=== PATIENT | male | born 1970 | race Caucasian/White ===

== ENCOUNTER → 2020-06-14 | Emergency (ER) | payer OTHER ==
[~2020-06-14] VITALS: Ht 182.9 cm; Wt 77.1 kg
[~2020-06-14] MED LIST: ANUSOL-HC25 MG PR; ANUSOL-HC30 GM PR; BACLOFEN10 MG PO; CLEOCIN HCL300 MG PO; CYMBALTA30 MG PO; DETROL LA2 MG PO; LYRICA300 MG PO; MELOXICAM7.5 MG PO; METHADONE HCL5 MG PO; MIRALAX17 GM PO; NEURONTIN300 MG PO; NITRO-BID1 INCH TD; OMEPRAZOLE20 MG PO; PERCOCET 5-3251 EACH PO
--- NOTE | 2020-06-16 13:49 | EKG ---
[facility] [address] [facility] [place] [address] Signed Normal sinus rhythm Possible Left atrial enlargement RSR' or QR pattern in V1 suggests right ventricular conduction delay Borderline ECG No previous ECGs available Confirmed by ELMA PENA DO ([id number]) on 06/16/2020 1:49:09 PM Electronically Signed By: ELMA PENA DO 06/16/20 1349 PATIENT NAME: VASYL ENAMORADO Electrocardiogram DATE OF : 72 PHYSICIAN: ELMA PENA DO REPORT #: [id number] REPORT IS CONFIDENTIAL AND NOT TO BE RELEASED WITHOUT AUTHORIZATION
== END | disposition home or self-care (01) ==
LOC: ED 05:26
DX: R03.1 Nonspecific low blood-pressure reading (principal)
CPT/HCPCS: 93005; 93010; 99283-25

== ENCOUNTER 2022-10-20 15:38 | Inpatient (IN) | payer OTHER ==
[~2022-10-20] VITALS: Ht 182.9 cm; Wt 79.0 kg
[~2022-10-20 15:38] MED LIST changes: +CYMBALTA60 MG; +OXYCODONE HCL5 MG PO; +VALIUM5 MG PO
[2022-10-20] MEDS ORDERED: PREGABALIN300 MG PO (15:49)
[2022-10-20] MEDS ORDERED: DETROL LA2 MG PO (15:49)
[2022-10-20] MEDS ORDERED: KEPPRA1000 MG PO (15:50)
[2022-10-20 19:24] LABS: BASOPHILS 0.8 % (0-2); EOSINOPHILS 0.7 % (0-6); HEMATOCRIT 40.7 % (35.0-50.0); HEMOGLOBIN 13.5 g/dL (12.0-18.0); LYMPHOCYTES 22.3 % (24-44); MCH 28.5 (27-36); MCHC 33.1 g/dl (30-36); MCV 86.2 fl (81-99); MONOCYTES 7.6 % (0-12); NEUTROPHILS 68.6 % (39-80); PLATELET COUNT 384 K/uL (140-440); RBC 4.72 M/ul (4.3-5.7); RDW 15.6 (10.5-15.0)
[2022-10-20 19:45] LABS: BILIRUBIN, URINE NEGATIVE (negative); BLOOD/HGB, URINE MODERATE (Negative); KETONE, URINE SMALL (Negative); LEUK ESTERASE, URINE MODERATE (negative); NITRITE, URINE POSITIVE (negative)
[2022-10-20 19:45] LABS: ALBUMIN 3.5 g/dL (3.4-5.0); ALBUMIN/GLOBULIN RATIO 0.9 (1.1-2.4); ANION GAP 14.8 (7-21); BILIRUBIN, TOTAL 0.5 ng/dL (0.2-1.0); BUN/CREATININE RATIO 27.9 (6.0-28.6); CALCIUM 8.9 mg/dL (8.5-10.1); CREATININE, SERUM 0.43 mg/dL (0.70-1.30); POTASSIUM 3.8 mmol/L (3.5-5.1); PROTEIN, TOTAL 7.4 g/dL (6.4-8.2)
[2022-10-20 19:51] LABS: BACTERIA, URINE 1+ /hpf (negative); CASTS, URINE NONE SEEN \\lpf; COLLECTION TYPE, URINE CLEAN CATCH; CRYSTALS, URINE NONE SEEN (0-1+); EPITHELIAL CELLS, URINE NONE SEEN /lpf (0-1+); REFLEX CULTURE, URINE Yes (No); WHITE BLOOD CELLS, URINE 21-40 /HPF (0-5)
[2022-10-20 21:38] VITALS: BP 147/97
[2022-10-20 21:43] LABS: INFLUENZA B NAA NEGATIVE (NEGATIVE); RESPIRATORY SYNCYTIAL VIR NAA NEGATIVE (NEGATIVE)
[2022-10-21 01:12] VITALS: BP 106/73
[2022-10-21 05:24] LABS: BASOPHILS 0.7 % (0-2); HEMATOCRIT 38.5 % (35.0-50.0); HEMOGLOBIN 12.6 g/dL (12.0-18.0); LYMPHOCYTES 18.4 % (24-44); MCH 28.3 (27-36); MCHC 32.7 g/dl (30-36); MCV 86.6 fl (81-99); MONOCYTES 8.9 % (0-12); PLATELET COUNT 375 K/uL (140-440); RBC 4.45 M/ul (4.3-5.7); RDW 15.7 (10.5-15.0)
[2022-10-21 05:43] LABS: ANION GAP 13.2 (7-21); BUN/CREATININE RATIO 32.55 (6.0-28.6); CALCIUM 8.3 mg/dL (8.5-10.1); CREATININE, SERUM 0.43 mg/dL (0.70-1.30); MAGNESIUM 1.9 mg/dL (1.8-2.4); PHOSPHORUS, INORGANIC 3.5 mg/dL (2.5-4.9); POTASSIUM 4.2 mmol/L (3.5-5.1)
[2022-10-21 05:55] VITALS: BP 127/91
[2022-10-21 09:04] VITALS: BP 125/88
[2022-10-21] MEDS ORDERED: BACLOFEN20 MG PO (10:26)
[2022-10-21 12:57] VITALS: BP 120/85
[2022-10-21 18:45] VITALS: BP 95/59
[2022-10-21 20:16] VITALS: BP 97/58
[2022-10-22 05:00] VITALS: BP 116/76
[2022-10-22 05:18] LABS: BASOPHILS 0.9 % (0-2); EOSINOPHILS 1.1 % (0-6); HEMATOCRIT 37.6 % (35.0-50.0); HEMOGLOBIN 12.3 g/dL (12.0-18.0); LYMPHOCYTES 23.6 % (24-44); MCH 28.5 (27-36); MCHC 32.8 g/dl (30-36); MCV 86.9 fl (81-99); MONOCYTES 8.7 % (0-12); NEUTROPHILS 65.7 % (39-80); PLATELET COUNT 349 K/uL (140-440); RBC 4.33 M/ul (4.3-5.7); RDW 15.9 (10.5-15.0)
[2022-10-22 05:27] LABS: ANION GAP 12.3 (7-21); BUN/CREATININE RATIO 22.85 (6.0-28.6); CALCIUM 8.1 mg/dL (8.5-10.1); CREATININE, SERUM 0.35 mg/dL (0.70-1.30); POTASSIUM 3.3 mmol/L (3.5-5.1)
[2022-10-22 10:06] VITALS: BP 99/66
[2022-10-22 13:20] VITALS: BP 96/68
[2022-10-22 18:48] VITALS: BP 142/96
[2022-10-22 20:20] VITALS: BP 154/101
[2022-10-22 22:45] VITALS: BP 117/73
[2022-10-23 04:37] VITALS: BP 116/77
[2022-10-23 05:26] LABS: BASOPHILS 1.2 % (0-2); EOSINOPHILS 1.7 % (0-6); HEMATOCRIT 37.9 % (35.0-50.0); HEMOGLOBIN 12.5 g/dL (12.0-18.0); LYMPHOCYTES 24.3 % (24-44); MCH 28.6 (27-36); MCV 86.6 fl (81-99); MONOCYTES 8.6 % (0-12); NEUTROPHILS 64.2 % (39-80); PLATELET COUNT 357 K/uL (140-440); RBC 4.38 M/ul (4.3-5.7); RDW 15.7 (10.5-15.0)
[2022-10-23 05:36] LABS: ANION GAP 13.9 (7-21); BUN/CREATININE RATIO 19.51 (6.0-28.6); CALCIUM 8.3 mg/dL (8.5-10.1); CREATININE, SERUM 0.41 mg/dL (0.70-1.30); POTASSIUM 3.9 mmol/L (3.5-5.1)
[2022-10-23 09:48] VITALS: BP 95/53
[2022-10-23 13:34] VITALS: BP 119/76
[2022-10-23 18:38] VITALS: BP 138/90
[2022-10-23 20:07] VITALS: BP 135/93
[2022-10-24 05:04] VITALS: BP 127/91
[2022-10-24 10:12] VITALS: BP 143/82
[2022-10-24 15:02] VITALS: BP 118/75
[2022-10-24] MEDS ORDERED: DOXYCYCLINE HY100 MG PO (17:38)
[2022-10-24] MEDS ORDERED: CEFPODOXIME PR200 MG PO (17:38)
[2022-10-24] MEDS ORDERED: NITRO-BID1 INCH TOP (17:38)
[2022-10-24] MEDS ORDERED: KEPPRA1000 MG PO (17:56)
[2022-10-24] MEDS ORDERED: PREGABALIN300 MG PO (17:56)
[2022-10-24] MEDS ORDERED: BACLOFEN20 MG PO (17:56)
[2022-10-24] MEDS ORDERED: DETROL LA2 MG PO (17:56)
[2022-10-24 18:35] VITALS: BP 106/72
[2022-10-24 20:56] VITALS: BP 111/64
[2022-10-25 05:33] VITALS: BP 121/78
[2022-10-25 05:33] LABS: BASOPHILS 1.1 % (0-2); EOSINOPHILS 1.3 % (0-6); HEMATOCRIT 37.7 % (35.0-50.0); HEMOGLOBIN 12.5 g/dL (12.0-18.0); LYMPHOCYTES 21.8 % (24-44); MCH 28.5 (27-36); MCHC 33.3 g/dl (30-36); MCV 85.5 fl (81-99); MONOCYTES 8.2 % (0-12); NEUTROPHILS 67.6 % (39-80); PLATELET COUNT 356 K/uL (140-440); RBC 4.41 M/ul (4.3-5.7); RDW 15.6 (10.5-15.0)
[2022-10-25 05:44] LABS: ANION GAP 12.5 (7-21); BUN/CREATININE RATIO 33.33 (6.0-28.6); CALCIUM 8.5 mg/dL (8.5-10.1); CREATININE, SERUM 0.39 mg/dL (0.70-1.30); POTASSIUM 4.5 mmol/L (3.5-5.1)
[2022-10-25 09:36] VITALS: BP 126/72
[2022-10-25 14:14] VITALS: BP 107/85
[2022-10-25 18:00] VITALS: BP 127/84
[2022-10-25 20:43] VITALS: BP 106/69
[2022-10-26 05:32] VITALS: BP 122/76
[2022-10-26 10:06] VITALS: BP 124/85
== END 2022-10-26 15:30 | DRG 593 ==
LOC: ED 15:38 → MS 20:24
PROVIDERS: Emergency Medicine; ADMIT Family Medicine; ATTEND Internal Medicine
DX: L89.212 Pressure ulcer of right hip, stage 2 (principal); N39.0 Urinary tract infection, site not specified; L89.312 Pressure ulcer of right buttock, stage 2; G90.4 Autonomic dysreflexia; Z20.822 Contact with and (suspected) exposure to COVID-19; E87.6 Hypokalemia; G83.9 Paralytic syndrome, unspecified; Z98.890 Other specified postprocedural states; Z79.899 Other long term (current) drug therapy; Z86.73 Personal history of transient ischemic attack (TIA), and cerebral infarction without residual deficits
CPT/HCPCS: 36415; 80048; 80053; 81001; 83735; 84100; 85025; 87088; 87502; 96374; 97110; 97163; 97165; 97530; 99284-25; A9270; J0696; J1650; J2405; J7030; U0002

== ENCOUNTER 2023-08-10 10:52 | Emergency (ER) | payer OTHER ==
[~2023-08-10] VITALS: Ht 182.9 cm; Wt 79.5 kg
[~2023-08-10 10:52] MED LIST changes: +BACLOFEN20 MG PO; +BACTRIM DS TAB1 EACH PO; +CEFPODOXIME PR200 MG PO; +DOXYCYCLINE HY100 MG PO; +KEPPRA1000 MG PO; +NITRO-BID1 INCH TOP; +PREGABALIN300 MG PO
[2023-08-10 11:19] LABS: BILIRUBIN, URINE NEGATIVE (negative); BLOOD/HGB, URINE LARGE (Negative); KETONE, URINE NEGATIVE (Negative); LEUK ESTERASE, URINE LARGE (negative); NITRITE, URINE POSITIVE (negative)
[2023-08-10 11:24] LABS: BASOPHILS 0.7 % (0-2); EOSINOPHILS 0.3 % (0-6); HEMOGLOBIN 14.6 g/dL (12.0-18.0); LYMPHOCYTES 24.5 % (24-44); MCH 28.4 (27-36); MCHC 33.1 g/dl (30-36); MCV 85.7 fl (81-99); MONOCYTES 6.7 % (0-12); NEUTROPHILS 67.8 % (39-80); PLATELET COUNT 249 K/uL (140-440); RBC 5.14 M/ul (4.3-5.7); RDW 14.6 (10.5-15.0)
[2023-08-10 11:29] LABS: RED BLOOD CELLS, URINE 21-40 /hpf (0-5)
[2023-08-10 11:30] LABS: BACTERIA, URINE 1+ /hpf (negative); CASTS, URINE NONE SEEN \\lpf; COLLECTION TYPE, URINE CLEAN CATCH; CRYSTALS, URINE NONE SEEN (0-1+); EPITHELIAL CELLS, URINE SQUAMOUS 1+ /lpf (0-1+); REFLEX CULTURE, URINE Yes (No); WHITE BLOOD CELLS, URINE >50 /HPF (0-5)
[2023-08-10 11:38] LABS: ALBUMIN 3.9 g/dL (3.4-5.0); ALBUMIN/GLOBULIN RATIO 1.05 (1.1-2.4); ANION GAP 14.7 (7-21); BILIRUBIN, TOTAL 0.6 ng/dL (0.2-1.0); BUN/CREATININE RATIO 34.14 (6.0-28.6); CALCIUM 8.8 mg/dL (8.5-10.1); CREATININE, SERUM 0.41 mg/dL (0.70-1.30); POTASSIUM 3.7 mmol/L (3.5-5.1); PROTEIN, TOTAL 7.6 g/dL (6.4-8.2)
[2023-08-10] MEDS ORDERED: BACTRIM DS TAB1 EACH PO (12:27)
[2023-08-10] MEDS ORDERED: TRIMETHOPRIM/SULFAMETHOXAZOLE 1 EA TAB PO ONE (12:30)
[2023-08-10 12:48] VITALS: BP 91/71
== END 2023-08-10 12:48 | disposition home or self-care (01) ==
LOC: ED 10:52
PROVIDERS: Emergency Medicine
DX: T83.511A Infection and inflammatory reaction due to indwelling urethral catheter, initial encounter (principal); N39.0 Urinary tract infection, site not specified; G82.50 Quadriplegia, unspecified; Z79.899 Other long term (current) drug therapy
CPT/HCPCS: 36415; 80053; 81001; 85025; 87088; 99283; A9270